=== PATIENT | male | born 1950 | race Caucasian/White ===

== ENCOUNTER 2019-11-24 00:46 | Emergency (ER) | payer OTHER ==
[~2019-11-24] VITALS: Ht 182.9 cm; Wt 87.1 kg
== END 2019-11-24 02:45 | disposition home or self-care (01) ==
LOC: ED 00:46
DX: S80.12XA Contusion of left lower leg, initial encounter (principal); S80.11XA Contusion of right lower leg, initial encounter; Z87.891 Personal history of nicotine dependence; Z88.8 Allergy status to other drugs, medicaments and biological substances; V59.9XXA Occupant (driver) (passenger) of pick-up truck or van injured in unspecified traffic accident, initial encounter
CPT/HCPCS: 73562; 80053; 81001; 82550; 83874; 85025; 99284-25; J7030

== ENCOUNTER 2022-04-22 21:14 | Emergency (ER) | payer OTHER ==
[~2022-04-22] VITALS: Ht 182.9 cm; Wt 89.8 kg
[2022-04-22] MEDS ORDERED: METFORMIN HCL500 MG PO (21:25)
[2022-04-22] MEDS ORDERED: HYDROCODON-ACE1 EA10 PO (21:59)
[2022-04-22] MEDS ORDERED: CRUTCHES XX (21:59)
== END 2022-04-22 22:20 | disposition home or self-care (01) ==
LOC: ED 21:14
DX: S86.811A Strain of other muscle(s) and tendon(s) at lower leg level, right leg, initial encounter (principal); Z87.891 Personal history of nicotine dependence; Z88.8 Allergy status to other drugs, medicaments and biological substances; Z88.6 Allergy status to analgesic agent; W00.0XXA Fall on same level due to ice and snow, initial encounter
CPT/HCPCS: 73560; 99283-25; A9270

== ENCOUNTER 2023-06-09 12:13 | Emergency (ER) | payer OTHER ==
[~2023-06-09] VITALS: Ht 182.9 cm; Wt 84.4 kg
[~2023-06-09 12:13] MED LIST: CRUTCHES XX; HYDROCODON-ACE1 EA10 PO; METFORMIN HCL500 MG PO
[2023-06-09] MEDS ORDERED: CILOSTAZOL50 MG PO (12:23)
[2023-06-09 12:36] LABS: BASOPHILS 0.3 % (0-2); EOSINOPHILS 0.6 % (0-6); HEMATOCRIT 41.7 % (35.0-50.0); HEMOGLOBIN 13.5 g/dL (12.0-18.0); LYMPHOCYTES 9.2 % (24-44); MCH 26.3 (27-36); MCHC 32.4 g/dl (30-36); MCV 81.3 fl (81-99); MONOCYTES 6.6 % (0-12); NEUTROPHILS 83.3 % (39-80); PLATELET COUNT 364 K/uL (140-440); RBC 5.13 M/ul (4.3-5.7); RDW 15.4 (10.5-15.0)
[2023-06-09 12:55] LABS: ALBUMIN 3.7 g/dL (3.4-5.0); ALBUMIN/GLOBULIN RATIO 1.06 (1.1-2.4); ANION GAP 11.2 (7-21); BILIRUBIN, TOTAL 0.3 ng/dL (0.2-1.0); BUN/CREATININE RATIO 14.1 (6.0-28.6); CALCIUM 9.4 mg/dL (8.5-10.1); CREATININE, SERUM 1.56 mg/dL (0.70-1.30); MAGNESIUM 1.8 mg/dL (1.8-2.4); POTASSIUM 4.2 mmol/L (3.5-5.1); PROTEIN, TOTAL 7.2 g/dL (6.4-8.2)
[2023-06-09 13:28] LABS: BILIRUBIN, URINE NEGATIVE (negative); BLOOD/HGB, URINE MODERATE (Negative); KETONE, URINE NEGATIVE (Negative); LEUK ESTERASE, URINE NEGATIVE (negative); NITRITE, URINE NEGATIVE (negative); PH, URINE 7.5 (5-7)
[2023-06-09 13:37] LABS: CASTS, URINE NONE SEEN \\lpf; COLLECTION TYPE, URINE CLEAN CATCH; CRYSTALS, URINE NONE SEEN (0-1+); EPITHELIAL CELLS, URINE 0 /lpf (0-1+); RED BLOOD CELLS, URINE >50 /hpf (0-5); REFLEX CULTURE, URINE No (No); WHITE BLOOD CELLS, URINE 0-1 /HPF (0-5)
[2023-06-09 13:38] LABS: BACTERIA, URINE NONE SEEN /hpf (negative)
[2023-06-09] MEDS ORDERED: FLOMAX0.4 MG PO (14:50)
[2023-06-09] MEDS ORDERED: HYDROCODON-ACE1 EA10 PO (14:50)
[2023-06-09] MEDS ORDERED: ONDANSETRON ODT8 MG PO (14:50)
[2023-06-09 14:59] VITALS: BP 149/120
== END 2023-06-09 14:59 | disposition home or self-care (01) ==
LOC: ED 12:13
PROVIDERS: Emergency Medicine
DX: N13.2 Hydronephrosis with renal and ureteral calculous obstruction (principal); E11.9 Type 2 diabetes mellitus without complications; Z87.891 Personal history of nicotine dependence; Z79.84 Long term (current) use of oral hypoglycemic drugs
CPT/HCPCS: 36415; 74176; 80053; 81001; 83690; 83735; 85025; 99284-25; J7030

== ENCOUNTER 2024-02-24 11:43 | Emergency (ER) | payer OTHER ==
[~2024-02-24] VITALS: Ht 182.9 cm; Wt 89.2 kg
[~2024-02-24 11:43] MED LIST changes: +CILOSTAZOL50 MG PO; +FLOMAX0.4 MG PO; +ONDANSETRON ODT8 MG PO
[2024-02-24] MEDS ORDERED: KETOROLAC TROMETHAMINE 15 MG/ML VIAL IV ONE (12:15)
[2024-02-24 12:17] LABS: BASOPHILS 0.4 % (0-2); EOSINOPHILS 0.8 % (0-6); HEMATOCRIT 43.1 % (35.0-50.0); HEMOGLOBIN 13.7 g/dL (12.0-18.0); LYMPHOCYTES 11.6 % (24-44); MCH 26.2 (27-36); MCHC 31.7 g/dl (30-36); MCV 82.5 fl (81-99); MONOCYTES 5.4 % (0-12); NEUTROPHILS 81.8 % (39-80); PLATELET COUNT 393 K/uL (140-440); RBC 5.23 M/ul (4.3-5.7); RDW 15.5 (10.5-15.0)
[2024-02-24 12:35] LABS: ALBUMIN 3.5 g/dL (3.4-5.0); ALBUMIN/GLOBULIN RATIO 0.97 (1.1-2.4); ANION GAP 16.7 (7-21); BILIRUBIN, TOTAL 0.3 ng/dL (0.2-1.0); BUN/CREATININE RATIO 11.47 (6.0-28.6); CALCIUM 9.6 mg/dL (8.5-10.1); CREATININE, SERUM 1.22 mg/dL (0.70-1.30); POTASSIUM 4.7 mmol/L (3.5-5.1); PROTEIN, TOTAL 7.1 g/dL (6.4-8.2)
[2024-02-24 13:38] LABS: BILIRUBIN, URINE NEGATIVE (negative); BLOOD/HGB, URINE NEGATIVE (Negative); KETONE, URINE NEGATIVE (Negative); LEUK ESTERASE, URINE NEGATIVE (negative); NITRITE, URINE NEGATIVE (negative)
[2024-02-24] MEDS ORDERED: METRONIDAZOLE500 MG PO (14:14)
[2024-02-24] MEDS ORDERED: AMOX TR-K CLV1 EAC1 PO (14:14)
[2024-02-24] MEDS ORDERED: OXYCODONE HCL5 MG PO (14:14)
[2024-02-24] MEDS ORDERED: ONDANSETRON ODT4 MG PO (14:14)
[2024-02-24 14:22] VITALS: BP 156/112
== END 2024-02-24 14:20 | disposition home or self-care (01) ==
LOC: ED 11:43
PROVIDERS: Emergency Medicine
DX: K57.32 Diverticulitis of large intestine without perforation or abscess without bleeding (principal); N20.0 Calculus of kidney; N40.0 Benign prostatic hyperplasia without lower urinary tract symptoms; E11.9 Type 2 diabetes mellitus without complications; Z87.891 Personal history of nicotine dependence; Z88.8 Allergy status to other drugs, medicaments and biological substances; Z88.6 Allergy status to analgesic agent; Z79.84 Long term (current) use of oral hypoglycemic drugs
CPT/HCPCS: 36415; 74177; 80053; 81003; 85025; 96374; 99284-25; J1885; Q9967

== ENCOUNTER 2024-10-24 12:20 | Day surgery (SDC) | payer OTHER | END 2024-10-24 15:12 | disposition home or self-care (01) | LOC: DS 12:20 | PROC: 0DJD8ZZ Inspection of Lower Intestinal Tract, Via Natural or Artificial Opening Endoscopic (ICD-10-PCS; principal; 2024-10-24) | DX: Z12.11 Encounter for screening for malignant neoplasm of colon (principal); K57.30 Diverticulosis of large intestine without perforation or abscess without bleeding; M40.50 Lordosis, unspecified, site unspecified; I49.9 Cardiac arrhythmia, unspecified; Z79.84 Long term (current) use of oral hypoglycemic drugs; Z79.899 Other long term (current) drug therapy; Z86.0100 Personal history of colon polyps, unspecified; Z87.19 Personal history of other diseases of the digestive system ==